=== PATIENT | female | born 1960 | race Caucasian/White ===

== ENCOUNTER → 2016-07-20 | Outpatient (CLI) | payer OTHER | LOC: FIMAGING 14:49 | DX: Z12.31 Encounter for screening mammogram for malignant neoplasm of breast (principal) | CPT/HCPCS: G0202 ==

== ENCOUNTER → 2017-07-21 | Outpatient (CLI) | payer OTHER | LOC: FIMAGING 11:20 | PROVIDERS: ATTEND Nurse Practitioner Women's Health | DX: Z12.31 Encounter for screening mammogram for malignant neoplasm of breast (principal) ==

== ENCOUNTER → 2018-01-25 | Outpatient (CLI) | payer OTHER ==
[~2018-01-25] MED LIST: IOPAMIDOL (ISOVUE-300) 150 ML BTL ONE
== END ==
LOC: FIMAGING 11:49
PROVIDERS: ATTEND Internal Medicine
DX: R19.07 Generalized intra-abdominal and pelvic swelling, mass and lump (principal); N20.1 Calculus of ureter; K80.20 Calculus of gallbladder without cholecystitis without obstruction
CPT/HCPCS: Q9967

== ENCOUNTER 2018-02-25 07:44 | Inpatient (IN) | payer OTHER ==
[2018-02-25] MEDS ORDERED: ceFAZolin 2 GM/DEXTROSE 100 ML IV ONE (07:51)
[2018-02-25] MEDS ORDERED: LR 1,000 ML IV ONE (07:52)
[2018-02-25] MEDS ORDERED: BUPIVACAINE 0.5% 30 ML SDV ONE ×3 (08:42→12:33)
--- NOTE | 2018-02-25 08:52 | PDANEPAE ---
ANE History of Present Illness Laparoscopic mesenteric mass resection ANE Past Medical History - Cardiovascular History Hx Hypertension: Yes Hx Arrhythmias: No Hx Chest Pain: No Hx Coronary Artery / Peripheral Vascular Disease: No Hx CHF / Valvular Disease: No Hx Palpitations: No Cardiovascular History Comment: high cholesterol - Pulmonary History Hx COPD: No Hx Asthma/Reactive Airway Disease: No Hx Recent Upper Respiratory Infection: Yes Hx Oxygen in Use at Home: No Hx Sleep Apnea: Yes Sleep Apnea Screening Result - Last Documented: Positive Pulmonary History Comment: reports had a cold about 2 weeks ago, cough has subsided. KATHY +, uses Cpap - Neurologic History Hx Cerebrovascular Accident: No Hx Seizures: No Hx Dementia: No - Endocrine History Hx Diabetes: Yes - Renal History Hx Renal Disorders: Yes Renal History Comment: hx kidney stones - Liver History Hx Hepatic Disorders: No - Neurological & Psychiatric Hx Hx Neurological and Psychiatric Disorders: No - Cancer History Hx Cancer: No - Congenital Disorder History Hx Congenital Disorders: No - GI History Hx Gastrointestinal Disorders: No - Other Health History Other Health History: none - Chronic Pain History Chronic Pain: No - Surgical History Prior Surgeries: NovaSure endometrial ablation procedure, 2010 ANE Review of Systems Review of Systems: - Exercise capacity METS (RN): 5 METS ANE Patient History - Allergies Allergies/Adverse Reactions: Latex, Natural Rubber Allergy (Mild, Verified 02/25/18 08:45) Rash Penicillins Allergy (Verified 02/17/18 14:58) Unknown, from childhood sulfamethoxazole [From Bactrim] Allergy (Verified 02/17/18 14:58) Hives trimethoprim [From Bactrim] Allergy (Verified 02/17/18 14:58) Hives - Home Medications Home medications: home medication list seen and reviewed Home Medications: Aspirin EC [Aspirin EC 81 mg (*)] 81 mg PO HS 02/16/18 [Last Taken 02/19/18] Cholecalciferol Vit D3 [Vitamin D3 (*)] 1,000 units PO DAILY 02/16/18 [Last Taken 02/19/18] Herbals/Supplements -Info Only 1 ea PO DAILY 02/16/18 [Last Taken 02/19/18] Lisinopril [Zestril 10 mg (*)] 10 mg PO HS 02/16/18 [Last Taken 02/24/18] Multivitamins [Multivitamin (*)] 1 each PO DAILY 02/16/18 [Last Taken 02/19/18] Simvastatin 40 mg PO HS 02/16/18 [Last Taken 02/24/18] metFORMIN HCL [Glucophage 500 mg (*)] 500 mg PO BIDMEAL 02/16/18 [Last Taken ] - NPO status NPO Status: no food or drink >8 hours NPO Since - Liquids (Date): 02/25/18 NPO Since - Liquids (Time): 05:00 NPO Since - Solids (Date): 02/24/18 NPO Since - Solids (Time): 20:00 - Anes Hx Anes Hx: no prior problems - Smoking Hx Smoking Status: Never smoked - Alcohol Use Alcohol Use: Rarely - Family Anes Hx Family Anes Hx: none Family Hx Anesthesia Complications: none ANE Labs/Vital Signs - Vital Signs Blood Pressure: 172/92 Heart Rate: 94 Respiratory Rate: 16 O2 Sat (%): 97 Height: 154.94 cm Weight: 81.193 kg ANE Physical Exam - Airway Neck exam: FROM Mallampati Score: Class 1 Mouth exam: normal dental/mouth exam - Pulmonary Pulmonary: no respiratory distress, no rales or rhonchi - Cardiovascular Cardiovascular: regular rate and rhythym, no murmur, rub, or gallop - ASA Status ASA Status: III ANE Anesthesia Plan Anesthesia Plan: general endotracheal anesthesia
[2018-02-25] MEDS ORDERED: DEXAMETHASONE 4 MG/ML VIAL ONE ×2 (09:23→10:58)
[2018-02-25] MEDS ORDERED: ROCURONIUM 50 MG/5 ML VIAL ONE (09:23)
[2018-02-25] MEDS ORDERED: PROPOFOL/EMULSION 500 MG/50 ML BOTTLE IV ONE ×3 (09:24→12:01)
[2018-02-25] MEDS ORDERED: LIDOCAINE 2% 2 ML INJ ONE (09:24)
--- NOTE | 2018-02-25 09:52 | PDHPUP ---
History & Physical Update H&P update statement: This history and physical update is based on an assessment of the patient which was completed after admission or registration (within 24 hours), but prior to the surgery/procedure. H&P update: H&P reviewed & patient examined, no change in patient's condition since H&P completed
[2018-02-25] MEDS ORDERED: MIDAZOLAM 2 MG/2 ML VIAL IVP ONE (10:09)
[2018-02-25] MEDS ORDERED: SCOPOLAMINE HYDROBROMIDE 1 MG/3 DAYS PATCH TD ONE (10:12)
[2018-02-25] MEDS ORDERED: MIDAZOLAM 2 MG/2 ML VIAL ONE ×2 (10:12→11:09)
[2018-02-25] MEDS ORDERED: fentaNYL 250 MCG/5 ML INJ ONE (10:24)
[2018-02-25] MEDS ORDERED: fentaNYL 100 MCG/2 ML INJ ONE (12:01)
[2018-02-25] MEDS ORDERED: LIDOCAINE 1% 300 MG/30 ML SDV ONE (12:33)
--- NOTE | 2018-02-25 12:54 | POSTOPPROG ---
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
[2018-02-25] MEDS ORDERED: HYDROmorphONE/DILAUDID 1 MG/ML INJ IVP PRN (12:55)
[2018-02-25] MEDS ORDERED: ONDANSETRON DISINTEGRATING 4 MG TAB PO PRN (12:55)
[2018-02-25] MEDS ORDERED: ONDANSETRON 4 MG/2 ML VIAL IVP PRN ×2 (12:55→13:21)
[2018-02-25] MEDS ORDERED: ACETAMINOPHEN 325 MG TAB PO PRN (12:55)
[2018-02-25] MEDS ORDERED: diphenhydrAMINE 25 MG CAP PO PRN (12:55)
[2018-02-25] MEDS ORDERED: SUGAMMADEX SODIUM 200 MG/2 ML VIAL IVP ONE (12:59)
[2018-02-25] MEDS ORDERED: D50W 25 GM/50 ML SYR IVP PRN (12:59)
[2018-02-25] MEDS ORDERED: NS 1,000 ML IV SCH (13:00)
[2018-02-25] MEDS ORDERED: ONDANSETRON 4 MG/2 ML VIAL ONE (13:00)
[2018-02-25] MEDS ORDERED: NALOXONE HCL 0.4 MG/ML INJ IVP PRN (13:21)
[2018-02-25] MEDS ORDERED: PROMETHAZINE HCL 25 MG/ML INJ IVP PRN (13:21)
[2018-02-25] MEDS ORDERED: oxyCODONE IR 5 MG TAB PO PRN (13:21)
[2018-02-25] MEDS ORDERED: fentaNYL 100 MCG/2 ML INJ IVP PRN (13:21)
[2018-02-25] MEDS ORDERED: ALBUTEROL 3 ML DEYVIAL IH PRN (13:21)
[2018-02-25] MEDS: SCOPOLAMINE HYDROBROMIDE 1 MG/3 DAYS PATCH TD SCH (14:13)
--- NOTE | 2018-02-25 14:39 | PDMN ---
Medical Necessity Medical necessity: Pt meets inpt criteria per MD order and [facility] S-250, Bowel Surgery: Small Intestine Resection, Medicare inpt only list, 4-5 days. 57 y/o w/ hx of mesenteric mass, possibly carcinoid, admitted s/p lap w/convert to open small bowel and mesentery resection. Anticiapte>2MN for post-op recovery/care.
[2018-02-25] MEDS: metFORMIN HCL 500 MG TAB PO SCH (17:08)
[2018-02-25] MEDS: HYDROCODONE/APAP 5/325 TAB PO PRN (20:31)
[2018-02-25] MEDS: ATORVASTATIN CALCIUM 20 MG TAB PO SCH (20:31)
[2018-02-25] MEDS: LISINOPRIL 10 MG TAB PO SCH (20:32)
[2018-02-25] MEDS: ASPIRIN EC 81 MG TAB PO SCH (20:33)
--- NOTE | 2018-02-25 20:54 | POSTANESTH ---
Post Anesthetic Evaluation Cardiovascular Status: Normal, Stable Respiratory Status: Normal, Stable Level of Consciousness/Mental Status: Can Participate in Eval Pain Control: Adequate, Prn Tx Ordered Nausea/Vomiting Control: Adequate, Prn Tx Ordered Complications Possibly Related to Anesthesia: None Noted (Doing well. Pain controlled)
[2018-02-26] MEDS: HYDROCODONE/APAP 5/325 TAB PO PRN ×5 (04:56→22:25)
--- NOTE | 2018-02-26 08:21 | SOAPPROG ---
SOAP Progress Note Assessment/Plan: Assessment: 57 y/o F s/p open small bowel and mesenteric resection for mesenteric mass POD # 1 S: Doing well overall. Hungry. Pain controlled. Not passing gas yet, but feels rumbling. C/o of pressure near bladder, similar to feelings of uti. O: Alert Afebrile VSS RRR No increased WOB Abdomen soft, nontender, incision cdi, +bs Plan: Advance to clears. Ok to have oral pain pills. Will check ua. 02/26/18 08:18 Objective: Vital Signs Temp Pulse Resp BP Pulse Ox 36.8 C 74 12 128/80 H 94 02/26/18 04:00 02/26/18 04:00 02/26/18 04:00 02/26/18 04:00 02/26/18 04:00 02/25/18 02/26/18 02/27/18 05:59 05:59 05:59 Intake Total 1045 Output Total 550 Balance 495 ICD10 Worksheet Patient Problems: Problems Problem Status Onset Mesenteric mass Acute - ICD10 Problem Qualifiers (1) Mesenteric mass
[2018-02-26] MEDS: ENOXAPARIN 40 MG/0.4 ML SYR SC SCH (08:58)
[2018-02-26] MEDS: metFORMIN HCL 500 MG TAB PO SCH ×2 (09:40→17:23)
[2018-02-26] MEDS: CHOLECALCIFEROL VIT D3 1,000 UNITS TAB PO SCH (09:40)
--- NOTE | 2018-02-26 12:43 | ASMTCMCOM ---
CM Note CM Note Notes: Pt is s/p exploratory laparotomy and excision for a mesenteric mass. She has a hx of DM, HTN, KATHY. She is and lives in [place]. She has good support from her family. Anticipate d/c with no CM needs but will continue to follow for any change in needs. Date Signed: 02/26/2018 12:42 PM Electronically Signed By:DONY Rodrigez
[2018-02-26] MEDS: ASPIRIN EC 81 MG TAB PO SCH (20:57)
[2018-02-26] MEDS: LISINOPRIL 10 MG TAB PO SCH (20:58)
[2018-02-26] MEDS: ATORVASTATIN CALCIUM 20 MG TAB PO SCH (20:58)
--- NOTE | 2018-02-26 21:00 | GOP ---
DATE OF OPERATION: 02/25/2018 SURGEON: Mihaela Leung MD NETWORK SPECIALIST: Chely Lindsey, PAC. ANESTHESIA: General. ANESTHESIOLOGIST: Noy Wooten MD. PREOPERATIVE DIAGNOSIS: Mesenteric mass with question of carcinoid. POSTOPERATIVE DIAGNOSIS: Mesenteric mass with question of carcinoid. PROCEDURE PERFORMED: Laparoscopic converted to open small bowel resection. FINDINGS: 2 larger mesenteric nodules with several small satellite nodules. ESTIMATED BLOOD LOSS: 50 cc. INDICATIONS: The patient is a 57-year-old woman who had a CT scan that showed a calcified mesenteric mass suspicious for carcinoid. Her preoperative labs did not show elevated levels. A scan was michelle ed by her insurance company. She presented for resection. DESCRIPTION OF PROCEDURE: Patient was brought into the operating room, placed supine on the table, a nd general anesthesia was administered. Her abdomen was prepped and draped in the usual sterile fash ion. I infiltrated all sites with 0.5% Marcaine prior to making incisions. I made an incision in he r umbilicus. I elevated it. I inserted the Veress needle. It passed the hanging drop test. Her ab domen insufflated easily to a pressure of 15 mmHg. Under direct vision, I placed another trocar on h er lower abdomen. I ran her small bowel from the ligament of Treitz to the terminal ileum. Although there was some fullness in the mesentery, I did not see a distinct mass. I elected to make an open incision. I deepened the umbilical incision through the subcutaneous tissues. I divided the linea a lba. I elevated the peritoneum and entered the abdomen. I placed an Karel wound protector. I ran her small bowel, palpating the mesentery, and in a very specific area of the bowel, there were 2 larg er nodules, each approximately 2 cm, and several small satellite nodules. I biopsied one of the sate llite nodules and sent this to Pathology, and it showed fibrosis. I elected to perform a small bowel resection as one of the nodules was extremely deep in the mesenter y. I selected my points of transection to include all the nodules, and this included approximately 1 2 inches of small bowel. I aligned the bowel on anti mesenteric borders. I made an enterotomy in ea ch limb and placed the stapler. I fired the stapler. I then closed the enterotomy with a RONALD 75 and reinforced it with 3-0 Vicryl. I then divided the mesentery to include all the specimen with the Del Real rmonic Scalpel. I was very careful as I was getting deep into the mesentery to evaluate the blood harmon pply to the area and passed the specimen off the field. I closed the mesenteric defect, closed with 3-0 Vicryl. The anastomosis was widely patent. The bowel was pink and healthy. I returned the tenzin l to the abdominal cavity. I closed her fascia with 0 PDS. I recreated her a neoumbilicus with 3-0 Vicryl. I closed the skin with 3-0 Vicryl followed by 4-0 Monocryl. The small laparoscopic port sit e was also closed with 4-0 Monocryl. Steri-Strips applied inferiorly and a silver Mepilex dressing ap plied to the larger incision. She was awakened in the operating room, extubated, transferred to PACU in stable condition. /[id number]/MODL
[2018-02-27] MEDS: HYDROCODONE/APAP 5/325 TAB PO PRN ×4 (07:29→20:11)
[2018-02-27] MEDS: CHOLECALCIFEROL VIT D3 1,000 UNITS TAB PO SCH (07:59)
[2018-02-27] MEDS: ENOXAPARIN 40 MG/0.4 ML SYR SC SCH (07:59)
--- NOTE | 2018-02-27 09:33 | SOAPPROG ---
SOAP Progress Note Assessment/Plan: Assessment: 57 y/o F s/p open small bowel and mesenteric resection for mesenteric mass POD # 2 S: Doing well overall. Pain controlled. Tolerating clears and passing gas. O: Alert Afebrile VSS RRR No increased WOB Abdomen soft, nontender, incision cdi, +bs Plan: Avance to light diet. 02/27/18 09:32 Objective: Vital Signs Temp Pulse Resp BP Pulse Ox 37.2 C 70 16 156/85 H 93 02/27/18 07:37 02/27/18 07:37 02/27/18 07:37 02/27/18 07:37 02/27/18 07:37 02/26/18 02/27/18 02/28/18 05:59 05:59 05:59 Intake Total 1045 Output Total 550 420 Balance 495 -420 ICD10 Worksheet Patient Problems: Problems Problem Status Onset Mesenteric mass Acute - ICD10 Problem Qualifiers (1) Mesenteric mass
[2018-02-27] MEDS: metFORMIN HCL 500 MG TAB PO SCH ×2 (09:56→18:05)
[2018-02-27] MEDS: LISINOPRIL 10 MG TAB PO SCH (20:11)
[2018-02-27] MEDS: ATORVASTATIN CALCIUM 20 MG TAB PO SCH (20:11)
[2018-02-27] MEDS: ASPIRIN EC 81 MG TAB PO SCH (20:12)
[2018-02-28] MEDS: HYDROCODONE/APAP 5/325 TAB PO PRN ×2 (04:29→08:29)
[2018-02-28 07:26] VITALS: BP 137/84
[2018-02-28] MEDS ORDERED: BISACODYL 10 MG SUPP PR PRN (08:14)
[2018-02-28] MEDS ORDERED: LACTULOSE 20 GM/30 ML UDCUP PO PRN (08:14)
[2018-02-28] MEDS ORDERED: POLYETHYLENE GLYCOL 3350 17 GM PKT PO PRN (08:14)
[2018-02-28] MEDS ORDERED: MAGNESIUM HYDROXIDE 30 ML UDCUP PO PRN (08:14)
[2018-02-28] MEDS: ENOXAPARIN 40 MG/0.4 ML SYR SC SCH (08:28)
[2018-02-28] MEDS ORDERED: SENNOSIDES/DOCUSATE SODIUM TAB PO SCH (09:00)
--- NOTE | 2018-02-28 09:09 | SOAPPROG ---
SOAP Progress Note Assessment/Plan: Assessment/Plan: 57 y/o F s/p open small bowel and mesenteric resection for mesenteric mass POD # 3 Regular diet Path pending Pain controlled Return of bowel function Plan: DC home today. FU 2 weeks. S: Doing very well. Pain controlled. Tolerating diet. O: comfortable, NAD No increased WOB Abdomen soft, nontender, incision cdi, +bs Objective: Vital Signs Temp Pulse Resp BP Pulse Ox 36.7 C 699 H 10 L 137/84 H 92 02/28/18 07:24 02/28/18 07:24 02/28/18 07:24 02/28/18 07:24 02/28/18 07:24 02/27/18 02/28/18 03/01/18 05:59 05:59 05:59 Output Total 420 500 Balance -420 -500 ICD10 Worksheet Patient Problems: Problems Problem Status Onset Mesenteric mass Acute
[2018-02-28] MEDS: CHOLECALCIFEROL VIT D3 1,000 UNITS TAB PO SCH (09:34)
[2018-02-28] MEDS: metFORMIN HCL 500 MG TAB PO SCH (09:34)
[2018-02-28] MEDS ORDERED: PATCH REMOVAL 1 EA PATCH TD SCH (10:10)
[2018-02-28] MEDS: SCOPOLAMINE HYDROBROMIDE 1 MG/3 DAYS PATCH TD SCH (11:15)
== END 2018-02-28 12:08 | disposition home or self-care (01) | DRG 346 ==
LOC: F3N 07:44 → OBSVTOIN 12:58 → F3E 14:04
PROVIDERS: ADMIT Surgery; ATTEND Surgery
DX: K63.9 Disease of intestine, unspecified (principal); I88.0 Nonspecific mesenteric lymphadenitis; E11.9 Type 2 diabetes mellitus without complications; E78.5 Hyperlipidemia, unspecified; I10 Essential (primary) hypertension; G47.33 Obstructive sleep apnea (adult) (pediatric)
CPT/HCPCS: J0690; J1100; J1170; J1650; J2250; J2270; J2405; J2704; J3010

== ENCOUNTER → 2018-07-26 | Outpatient (CLI) | payer OTHER | LOC: FIMAGING 14:01 | PROVIDERS: ATTEND Nurse Practitioner Women's Health | DX: Z12.31 Encounter for screening mammogram for malignant neoplasm of breast (principal) ==